=== PATIENT | female | born 1955 | race Caucasian/White ===

== ENCOUNTER → 2016-10-22 | Outpatient (CLI) | payer OTHER ==
--- NOTE | 2016-10-23 13:32 | MM ---
Reason for exam: screening (asymptomatic). Last mammogram was performed 1 year and 7 months ago. History: Patient is postmenopausal. Physical Findings: Nurse did not find any significant physical abnormalities on exam. MG Screening Mammo w CAD Bilateral CC and MLO view(s) were taken. Prior study comparison: March 25, 2015, bilateral MG screening mammo w CAD. October 10, 2013, bilateral MG screening mammo w CAD. There are scattered fibroglandular densities. There is chronic nodularity in the left breast. Asymmetric breast tissue in the left outer CC view. Asymmetry. ASSESSMENT: Incomplete: need additional imaging evaluation, BI-RAD 0 RECOMMENDATION: Special view mammogram of the left breast. (tomosynthesis) If lesion persists on supplemental views, image directed ultrasound is recommended. [facility] will attempt to contact patient to return for supplemental views and ultrasound if indicated.
== END | disposition home or self-care (01) ==
LOC: RADMAMWWP 10:57
PROVIDERS: ATTEND Family Medicine
DX: Z12.31 Encounter for screening mammogram for malignant neoplasm of breast (principal)

== ENCOUNTER → 2017-09-08 | Outpatient (CLI) | payer MEDICAID, OTHER ==
--- NOTE | 2017-09-08 16:29 | XR ---
EXAMINATION TYPE: XR ankle complete LT DATE OF EXAM: 09/08/2017 CLINICAL HISTORY: Pain after fall injury 3 hours ago. TECHNIQUE: Frontal, lateral and oblique images of the left ankle are obtained. COMPARISON: None. FINDINGS: There is acute minimally displaced comminuted spiral type fracture through the distal fibu lar diaphysis above the ankle mortise. The medial and posterior malleoli are intact. The ankle mortis e appears within normal limits. Moderate soft tissue swelling over lateral malleolus is noted. IMPRESSION: There is acute comminuted minimally displaced spiral type fracture through the distal fi bular diaphysis or lateral malleolus above mortise. (Initial encounter closed type posttraumatic fracture)
== END | disposition home or self-care (01) ==
LOC: RADXRYALE 16:04
PROVIDERS: ATTEND Physician Assistant Medical
DX: S82.892A Other fracture of left lower leg, initial encounter for closed fracture (principal)